=== PATIENT | female | born 1945 | race Caucasian/White ===

== ENCOUNTER → 2016-05-31 | Day surgery (SDC) | payer MEDICARE, OTHER ==
[~2016-05-31] VITALS: Ht 165.1 cm; Wt 98.9 kg
[~2016-05-31] MED LIST: CARDIZEM CD300 MG PO; DUO NEB; ELIQUIS 5 MG TAB5 MG PO; HYDROCHLOROTHIA25 MG PO; IRON18 MG PO; KLONOPIN TAB 00.5 MG PO; LISINOPRIL20 MG PO; LOPRESSOR50 MG PO; MEDROL DOSEPAK 24 MG PO; NEURONTIN 100100 MG PO; NORCO 5-325 TA1 EACH PO; OMNICEF 300 MG300 MG PO; PREDNISONE PACK PO; PROVENTIL HFA6.7 GM INH; SOTALOL80 MG PO; SPIRIVA18 MCG INH; SYMBICORT 160-1 INHA INH; VITAMIN C 250250 MG PO; ZANAFLEX4 M1 PO; ZANTAC150 MG PO
== END | disposition home or self-care (01) ==
LOC: OR 08:04
PROVIDERS: Internal Medicine Gastroenterology
PROC: 0DBP8ZZ Excision of Rectum, Via Natural or Artificial Opening Endoscopic (ICD-10-PCS; 2016-05-31)
PROC: 0DB98ZX Excision of Duodenum, Via Natural or Artificial Opening Endoscopic, Diagnostic (ICD-10-PCS; principal; 2016-05-31 12:15)
PROC: 0DB38ZX Excision of Lower Esophagus, Via Natural or Artificial Opening Endoscopic, Diagnostic (ICD-10-PCS; 2016-05-31 12:15)
DX: K62.1 Rectal polyp (principal); K21.0 Gastro-esophageal reflux disease with esophagitis; K44.9 Diaphragmatic hernia without obstruction or gangrene; K64.0 First degree hemorrhoids; K57.30 Diverticulosis of large intestine without perforation or abscess without bleeding; D50.9 Iron deficiency anemia, unspecified; J44.9 Chronic obstructive pulmonary disease, unspecified; I10 Essential (primary) hypertension; K21.9 Gastro-esophageal reflux disease without esophagitis; E66.9 Obesity, unspecified; G89.29 Other chronic pain; M19.90 Unspecified osteoarthritis, unspecified site; M54.9 Dorsalgia, unspecified; Z68.36 Body mass index [BMI] 36.0-36.9, adult; Z86.73 Personal history of transient ischemic attack (TIA), and cerebral infarction without residual deficits; Z87.891 Personal history of nicotine dependence; Z82.49 Family history of ischemic heart disease and other diseases of the circulatory system; Z83.3 Family history of diabetes mellitus; Z79.899 Other long term (current) drug therapy; Z98.41 Cataract extraction status, right eye; Z98.42 Cataract extraction status, left eye; Z98.51 Tubal ligation status
CPT/HCPCS: J2250; J7030

== ENCOUNTER 2016-06-11 15:15 | Inpatient (IN) | payer MEDICARE, OTHER ==
[~2016-06-11] VITALS: Ht 167.6 cm; Wt 92.5 kg
[~2016-06-11 15:15] MED LIST changes: -ELIQUIS 5 MG TAB5 MG PO; -IRON18 MG PO; -MEDROL DOSEPAK 24 MG PO; -NORCO 5-325 TA1 EACH PO; -OMNICEF 300 MG300 MG PO; -PROVENTIL HFA6.7 GM INH; -SOTALOL80 MG PO; -SPIRIVA18 MCG INH; -SYMBICORT 160-1 INHA INH; -VITAMIN C 250250 MG PO
[2016-06-11] MEDS ORDERED: IRON18 MG PO (15:52)
[2016-06-11] MEDS ORDERED: NORCO 5-325 TA1 EACH PO (15:53)
[2016-06-11] MEDS ORDERED: VITAMIN C 250250 MG PO (15:53)
[2016-06-12 03:46] LABS: HEMOGLOBIN 8.9 gm/dl (12.3-15.3); RED BLOOD COUNT 3.81 M/UL (4.00-5.10)
[2016-06-12 04:06] LABS: BUN/CREATININE RATIO 25 (0-10)
[2016-06-13 04:30] LABS: HEMOGLOBIN 9.8 gm/dl (12.3-15.3); WHITE BLOOD COUNT 14.9 K/UL (4.5-11.0)
[2016-06-13 04:32] LABS: RED BLOOD COUNT 4.24 M/UL (4.00-5.10)
[2016-06-13 05:01] LABS: BUN/CREATININE RATIO 26 (0-10)
[2016-06-13] MEDS ORDERED: ELIQUIS 5 MG TAB5 MG PO (11:33)
[2016-06-13] MEDS ORDERED: MEDROL DOSEPAK 24 MG PO (11:35)
[2016-06-13] MEDS ORDERED: SOTALOL80 MG PO (11:36)
[2016-06-13] MEDS ORDERED: OMNICEF 300 MG300 MG PO (11:45)
[2016-06-13] MEDS ORDERED: SYMBICORT 160-1 INHA INH (11:46)
[2016-06-13] MEDS ORDERED: PROVENTIL HFA6.7 GM INH (11:47)
[2016-06-13] MEDS ORDERED: SPIRIVA18 MCG INH (11:48)
== END 2016-06-13 13:28 | disposition home or self-care (01) | DRG 309 ==
LOC: PROG CARE 15:15
PROVIDERS: ADMIT Emergency Medicine
DX: I48.0 Paroxysmal atrial fibrillation (principal); J44.1 Chronic obstructive pulmonary disease with (acute) exacerbation; J98.11 Atelectasis; D50.9 Iron deficiency anemia, unspecified; R73.9 Hyperglycemia, unspecified; D72.829 Elevated white blood cell count, unspecified; T38.0X5A Adverse effect of glucocorticoids and synthetic analogues, initial encounter; I10 Essential (primary) hypertension; E78.5 Hyperlipidemia, unspecified; K80.20 Calculus of gallbladder without cholecystitis without obstruction; K21.0 Gastro-esophageal reflux disease with esophagitis; K44.9 Diaphragmatic hernia without obstruction or gangrene; E83.42 Hypomagnesemia; D53.9 Nutritional anemia, unspecified; K57.90 Diverticulosis of intestine, part unspecified, without perforation or abscess without bleeding; K64.8 Other hemorrhoids; F41.9 Anxiety disorder, unspecified; Z87.891 Personal history of nicotine dependence; Z86.010 Personal history of colon polyps; Z99.81 Dependence on supplemental oxygen; Z79.01 Long term (current) use of anticoagulants; Z79.82 Long term (current) use of aspirin; Z79.1 Long term (current) use of non-steroidal anti-inflammatories (NSAID); Z79.891 Long term (current) use of opiate analgesic; Z79.899 Other long term (current) drug therapy; Z88.5 Allergy status to narcotic agent; Z98.49 Cataract extraction status, unspecified eye; Z82.49 Family history of ischemic heart disease and other diseases of the circulatory system; Z83.3 Family history of diabetes mellitus
CPT/HCPCS: ECHO; 36415; 71010; 80048; 80053; 83735; 84439; 84443; 84481; 85025; 85027; 87205; 93005; 93306; 94640; 94664; J7509

== ENCOUNTER → 2016-06-28 | Outpatient (CLI) | payer MEDICARE, OTHER ==
[~2016-06-28] MED LIST changes: +ELIQUIS 5 MG TAB5 MG PO; +IRON18 MG PO; +MEDROL DOSEPAK 24 MG PO; +NORCO 5-325 TA1 EACH PO; +OMNICEF 300 MG300 MG PO; +PROVENTIL HFA6.7 GM INH; +SOTALOL80 MG PO; +SPIRIVA18 MCG INH; +SYMBICORT 160-1 INHA INH; +VITAMIN C 250250 MG PO
== END ==
LOC: HEART 5 10:50
DX: J44.9 Chronic obstructive pulmonary disease, unspecified (principal); R09.02 Hypoxemia; F17.210 Nicotine dependence, cigarettes, uncomplicated
CPT/HCPCS: 71020-FX; 94060; 94729